=== PATIENT | female | born 1945 | race Caucasian/White ===

== ENCOUNTER 2022-04-07 10:45 | Inpatient (IN) | payer OTHER ==
[~2022-04-07] VITALS: Ht 154.9 cm; Wt 86.2 kg
[~2022-04-07 10:45] MED LIST: AVAPRO150 MG PO; XANAX XR0.5 MG PO; ZANTAC150 M3 PO
[2022-04-09] MEDS ORDERED: ESCITALOPRAM OX10 MG (08:39)
[2022-04-12] MEDS ORDERED: HYOSCYAMINE0.125 M1 SL (12:31)
[2022-04-12] MEDS ORDERED: OXYC1TAB9 PO (12:32)
== END 2022-04-12 14:20 | disposition home or self-care (01) | DRG 331 ==
LOC: O/R 04-09 05:51 → SURH 04-09 05:51
PROVIDERS: ADMIT Surgery; ATTEND Surgery
PROC: 07BB4ZZ Excision of Mesenteric Lymphatic, Percutaneous Endoscopic Approach (ICD-10-PCS; 2022-04-09)
PROC: 0DTF4ZZ Resection of Right Large Intestine, Percutaneous Endoscopic Approach (ICD-10-PCS; principal; 2022-04-09 11:30)
DX: C18.0 Malignant neoplasm of cecum (principal); R19.5 Other fecal abnormalities; R14.0 Abdominal distension (gaseous); R59.0 Localized enlarged lymph nodes; Z20.822 Contact with and (suspected) exposure to COVID-19

== ENCOUNTER 2022-06-29 06:10 | Day surgery (SDC) | payer OTHER ==
[~2022-06-29] VITALS: Ht 154.9 cm; Wt 84.8 kg
[~2022-06-29 06:10] MED LIST changes: +ESCITALOPRAM OX10 MG; +HYOSCYAMINE0.125 M1 SL; +OXYC1TAB9 PO
[2022-06-29] MEDS ORDERED: ULTRACET PO (09:58)
== END 2022-06-29 13:15 | disposition home or self-care (01) ==
LOC: CIR.AMB 06:10
PROVIDERS: ATTEND Surgery
DX: C18.2 Malignant neoplasm of ascending colon (principal); Z88.6 Allergy status to analgesic agent; Z88.2 Allergy status to sulfonamides; C78.7 Secondary malignant neoplasm of liver and intrahepatic bile duct; Z20.822 Contact with and (suspected) exposure to COVID-19; Z91.041 Radiographic dye allergy status
CPT/HCPCS: 36561; C1788

== ENCOUNTER 2023-12-14 16:31 | Inpatient (IN) | payer OTHER ==
[~2023-12-14] VITALS: Ht 157.5 cm; Wt 81.6 kg
[~2023-12-14 16:31] MED LIST changes: +INTESTINEX680 M1 PO; +PEPCID AC20 MG PO; +ULTRACET PO; +XANAX0.25 MG PO
[2023-12-14] MEDS ORDERED: 0.9 % SODIUM CHLORIDE 1,000 ML IV SCH ×2 (17:15→22:00)
[2023-12-14 17:49] LABS: HEMATOCRIT 35.9 % (36.0-45.00); HEMOGLOBIN 11.6 g/dL (12.0-15.00); MEAN CELL VOLUME 83.4 fL (80.00-100.00); MEAN CORPUSCULAR HEMOGLOBIN 26.9 pg (27.00-32.0); MEAN CORPUSCULAR HGB CONC 32.2 g/dl (32.0-36.0); PLATELET COUNT 326 K/uL (150-450)
[2023-12-14 17:53] LABS: RED CELL DISTRIBUTION WIDTH 19.7 % (11.5-14.5)
[2023-12-14 18:08] LABS: CALCIUM 9.6 mg/dL (8.5-10.1); CREATININE SERUM 0.7 mg/dL (0.55-1.02); GFR 81.14; POTASSIUM 4.25 mEq/L (3.5-5.1)
[2023-12-14 18:31] LABS: D DIMER 13.39 MG/L; INR 0.99; PARTIAL THROMBOPLASTIN TIME 24.8 SECONDS (22.0-34.0); PROTHROMBIN TIME 10.4 SECONDS (9.0-11.5)
[2023-12-14 19:12] LABS: ABG PH 7.432 (7.35-7.45)
[2023-12-14 19:13] LABS: ABG PO2 84.9 mmHg (80-100); ABG pCO2 39.8 mmHg (35-45); BASE EXCESS 1.6 mmol/l; BICARBONATE 25.9 mmol/l (23-25); SaO2 96.7 %; Tco2 27.1 mmol/l; allen test SATISFACTORY; o2 21 %; puncture site RADIAL RIGHT
[2023-12-14] MEDS ORDERED: ENOXAPARIN SODIUM 60 MG/0.6 ML SYRINGE SUBCUTANEO SCH (22:06)
[2023-12-14] MEDS ORDERED: ONDANSETRON HCL 4 MG in DEXTROSE 5 % IN WATER 50 ML IV PRN (22:15)
[2023-12-15 06:59] LABS: URINE APPEARANCE Clear; URINE BILIRRUBIN Negative (NEGATIVE); URINE BLOOD Negative; URINE COLOR Yellow; URINE GLUCOSE Negative (NEGATIVE); URINE LEUKOCYTE Small; URINE NITRATE Negative; URINE PROTEIN Negative (NEGATIVE); URINE UROBILINOGEN 0.2 E.U./dl
[2023-12-15 07:08] LABS: URINE BACTERIA 248.2 uL (0.0-1933); URINE RBC 2.8 uL (0.0-20.8); URINE WBC 21.3 uL (0.0-23.2)
[2023-12-15 07:21] LABS: HEMATOCRIT 33.7 % (36.0-45.00); MEAN CELL VOLUME 83.1 fL (80.00-100.00); MEAN CORPUSCULAR HEMOGLOBIN 27.1 pg (27.00-32.0); MEAN CORPUSCULAR HGB CONC 32.6 g/dl (32.0-36.0); PLATELET COUNT 281 K/uL (150-450); RED BLOOD COUNT 4.06 M/uL (4.00-6.00); RED CELL DISTRIBUTION WIDTH 19.9 % (11.5-14.5)
[2023-12-15 07:40] LABS: INR 1.04; PARTIAL THROMBOPLASTIN TIME 27.7 SECONDS (22.0-34.0); PROTHROMBIN TIME 10.9 SECONDS (9.0-11.5)
[2023-12-15] MEDS ORDERED: CEFTRIAXONE SODIUM 2,000 MG in DEXTROSE 5 % IN WATER 100 ML IV SCH (09:00)
[2023-12-15] MEDS ORDERED: AZITHROMYCIN 500 MG in 0.9 % SODIUM CHLORIDE 250 ML IV SCH (09:00)
[2023-12-15] MEDS ORDERED: PANTOPRAZOLE SODIUM 40 MG/VIAL VIAL IV SCH (09:00)
[2023-12-15 11:27] LABS: CALCIUM 9.6 mg/dL (8.5-10.1); CREATININE SERUM 0.65 mg/dL (0.55-1.02); GFR 88.38; POTASSIUM 4.23 mEq/L (3.5-5.1)
[2023-12-16 08:35] LABS: MYCOPLASMA PNEUMONIAE IGM NON REACTIVE (NO REACTIVE)
[2023-12-16] MEDS ORDERED: ENOXAPARIN SODIUM 80 MG/0.8 ML SYRINGE SUBCUTANEO SCH (21:00)
[2023-12-17] MEDS ORDERED: ALPRAzolam 0.25 MG TABLET PO SCH (21:00)
[2023-12-18 09:07] LABS: ob POSITIVE (NEGATIVE)
[2023-12-18 09:38] LABS: HEMATOCRIT 29.7 % (36.0-45.00); MEAN CELL VOLUME 82.7 fL (80.00-100.00); PLATELET COUNT 301 K/uL (150-450); RED BLOOD COUNT 3.59 M/uL (4.00-6.00)
[2023-12-18 11:28] LABS: HEMOGLOBIN 9.8 g/dL (12.0-15.00); MEAN CORPUSCULAR HEMOGLOBIN 27.2 pg (27.00-32.0)
[2023-12-18] MEDS ORDERED: BUDESONIDE 0.5 MG/2 ML AMPUL.NEB IH SCH (13:23)
[2023-12-18] MEDS ORDERED: APIXABAN 5 MG TABLET PO SCH (17:00)
[2023-12-18] MEDS ORDERED: LEVALBUTEROL HCL 0.63 MG/3 ML SOLUTION IH SCH (17:00)
[2023-12-19] MEDS ORDERED: ALPRAZOLAM0.25 MG PO (10:01)
[2023-12-19] MEDS ORDERED: ELIQUIS5 MG PO ×2 (10:01)
== END 2023-12-19 13:24 | disposition home or self-care (01) | DRG 176 ==
LOC: ER 16:31 → MEDJ 22:18
PROVIDERS: Emergency Medicine; Internal Medicine; Internal Medicine Infectious Disease; ADMIT Internal Medicine; ATTEND Internal Medicine
PROC: BW24YZZ Computerized Tomography (CT Scan) of Chest and Abdomen using Other Contrast (ICD-10-PCS; principal; 2023-12-14)
PROC: BW24YZZ Computerized Tomography (CT Scan) of Chest and Abdomen using Other Contrast (ICD-10-PCS; 2023-12-15)
PROC: 02HV33Z Insertion of Infusion Device into Superior Vena Cava, Percutaneous Approach (ICD-10-PCS; 2023-12-16)
DX: I26.99 Other pulmonary embolism without acute cor pulmonale (principal); C78.7 Secondary malignant neoplasm of liver and intrahepatic bile duct; C18.2 Malignant neoplasm of ascending colon; Z20.822 Contact with and (suspected) exposure to COVID-19